=== PATIENT | female | born 1995 | race Hispanic/Latino ===

== ENCOUNTER 2019-01-30 20:42 | Emergency (ER) | payer OTHER ==
[2019-01-30] MEDS ORDERED: Sodium Chloride 0.9% 1,000 ML IV STA ×2 (21:00→21:31)
[2019-01-30 21:16] VITALS: O2SAT 100
[2019-01-30 21:21] LABS: HEMOGLOBIN 13.2 g/dL (12.0-16.0); MEAN CELL VOLUME 92.4 fl (81.0-99.0); MEAN CORPUSCULAR HEMOGLOBIN 30.8 pg (27.0-31.0); MEAN CORPUSCULAR HGB CONC 33.4 g/dL (33.0-37.0); RBC 4.3 Mil/uL (3.80-5.20); RED CELL DISTRIBUTION WIDTH 13.1 % (11.5-14.5); WHITE BLOOD COUNT 9.6 K/uL (4.8-10.8)
--- NOTE | 2019-01-30 21:29 | ED PDOC ---
HPI: Psych/Substance Abuse Time Seen by Provider: 01/30/19 20:52 Chief Complaint (Nursing): Alcohol Ingestion Chief Complaint (Provider): alcohol ingestion ED Caveat: Intoxicated History Per: Patient, EMS, Other (friend) History/Exam Limitations: intoxication Onset/Duration Of Symptoms: Mins (just prior to arrival) Current Symptoms Are (Timing): Still Present Severity: Moderate Additional Complaint(s): 23 year old female brought into the ED by EMS for alcohol intoxication. Patient's friend states that she was with the patient, they were drinking beer, wine, and vodka today. Friend states that the patient became progressively more intoxicated over a short period of time while in an uber, and did not feel safe with her going home. Upon ED arrival, patient is actively vomiting. PMD: None provided. Past Medical History Reviewed: Nursing Documentation, Vital Signs, Unable To Obtain Vital Signs: Last Vital Signs Temp Pulse 79 01/30/19 21:16 Resp 18 01/30/19 21:16 BP 111/70 01/30/19 21:16 Pulse Ox 100 01/30/19 21:16 LORNE Report Viewed: Yes Primary Care Provider: FAMILY PROVIDER,NO - Family History Family History: States: Unknown Family Hx - Home Medications Home Medications: Ambulatory Orders Medication Instructions Recorded Ondansetron ODT [Zofran ODT] 4 mg PO Q8 PRN #12 odt 01/31/19 - Allergies Allergies/Adverse Reactions: Allergies Allergy/AdvReac Type Severity Reaction Status Date / Time ORANGE Allergy ITCHING Verified 01/30/19 21:29 Penicillins Allergy ITCHING Verified 01/30/19 21:27 Review of Systems Review Of Systems: ROS cannot be obtained secondary to pt's inabilty to answer questions. Physical Exam - Reviewed Nursing Documentation Reviewed: Yes Vital Signs Reviewed: Yes - Physical Exam Appears: Positive for: Non-toxic, No Acute Distress. Negative for: Well (visibly intoxicated, actively vomiting) Head Exam: Positive for: ATRAUMATIC (no signs of external trauma), NORMOCEPHALIC Skin: Positive for: Normal Color, Warm, Dry Eye Exam: Positive for: Normal appearance Cardiovascular/Chest: Positive for: Regular Rate, Rhythm Respiratory: Positive for: Normal Breath Sounds Neurological/Psych: Positive for: Awake, Alert, Oriented (3x) - Laboratory Results Result Diagrams: 01/30/19 21:12 01/30/19 21:12 - ECG O2 Sat by Pulse Oximetry: 100 (RA) Pulse Ox Interpretation: Normal Medical Decision Making Medical Decision Makin:52 Initial impression: 23 year old female with alcohol intoxication without signs of trauma. Patient is undressed and on monitor. Will continue to observe until sober. Plan: * alcohol serum * BMP * CBC * glucose * accucheck * IV NS 1,000 ml IV 1,000 mls/hr * zofran 4 mg IV * reevaluation 2300 --Patient is more conversive and alert 200 --Patient's family at bedside who are comfortable taking her home --Patient more awake, alert, oriented, stable for discharge Scribe Attestation: Documented by Lili Yuan, acting as a scribe for Claudio Chairez MD. Provider Scribe Attestation: All medical record entries made by the Scribe were at my direction and personally dictated by me. I have reviewed the chart and agree that the record accurately reflects my personal performance of the history, physical exam, medical decision making, and the department course for this patient. I have also personally directed, reviewed, and agree with the discharge instructions and disposition. Disposition - Clinical Impression Clinical Impression: Alcohol abuse - Patient ED Disposition Is Patient to be Admitted: No Counseled Patient/Family Regarding: Studies Performed, Diagnosis - Disposition Referrals: [facility] [Outside] Disposition: Routine/Home Disposition Time: 02:00 Condition: IMPROVED Prescriptions: Ondansetron ODT [Zofran ODT] 4 mg PO Q8 PRN #12 odt PRN Reason: Nausea/Vomiting Instructions: Alcohol Use - When Is Drinking a Problem? Forms: [employer] (Filipino)
[2019-01-30 21:31] LABS: BLOOD UREA NITROGEN 11 mg/dl (7-17); CALCIUM 8.5 mg/dL (8.4-10.2); GFR NON-AFRICAN AMERICAN > 60
[2019-01-31 03:57] VITALS: BP 110/75; PULSE 89; RESP 18; TEMP 98.2
== END 2019-01-31 01:01 | disposition home or self-care (01) ==
LOC: H.ER 20:42
DX: F10.129 Alcohol abuse with intoxication, unspecified (principal); Z88.0 Allergy status to penicillin
CPT/HCPCS: 80048; 80320; 82948; 85027; 96374; 99285; J2405; J7030